=== PATIENT | female | born 1950 | race Caucasian/White ===

== ENCOUNTER → 2023-06-14 06:26 | Day surgery (SDC) | payer OTHER, SELFPAY | LOC: GI 06:26 | PROVIDERS: ATTENDING PHYSICIAN Internal Medicine Gastroenterology | DX: Z12.11 Encounter for screening for malignant neoplasm of colon (principal); Z86.010 Personal history of colon polyps; K64.8 Other hemorrhoids; K57.30 Diverticulosis of large intestine without perforation or abscess without bleeding; K56.699 Other intestinal obstruction unspecified as to partial versus complete obstruction | CPT/HCPCS: G0105 ==

== ENCOUNTER → 2023-08-31 11:46 | Outpatient (REF) | payer OTHER, SELFPAY | LOC: WDC 11:46 | PROVIDERS: ATTENDING PHYSICIAN Physician Assistant Medical | DX: Z12.31 Encounter for screening mammogram for malignant neoplasm of breast (principal) | CPT/HCPCS: 77063; 77067 ==

== ENCOUNTER → 2023-09-06 12:31 | Outpatient (REF) | payer OTHER, SELFPAY | LOC: RAD 12:31 | PROVIDERS: ATTENDING PHYSICIAN Physician Assistant Medical | DX: M81.0 Age-related osteoporosis without current pathological fracture (principal) | CPT/HCPCS: 77080 ==

== ENCOUNTER → 2023-11-26 14:06 | Outpatient (REF) | payer OTHER, SELFPAY | LOC: RAD 14:06 | PROVIDERS: ATTENDING PHYSICIAN Physician Assistant Medical | DX: M79.605 Pain in left leg (principal) | CPT/HCPCS: 93971 ==

== ENCOUNTER 2024-05-26 07:52 | Emergency (ER) | payer OTHER, SELFPAY ==
[2024-05-26 07:55] VITALS: BP 166/90
--- NOTE | 2024-05-26 09:15 | ED.GENMED ---
History of Present Illness
General
Chief Complaint: Fall
Time Seen by Provider: 05/26/24 08:04
History of Present Illness
History of Present Illness:
74-year-old female presents after a fall, tripped and fell outside her home and struck her head on concrete. Point of injury was the left posterior parietal scalp. No LOC. Reports mild dizziness after the injury however now has no complaints.
Does not take any blood thinners. No neck pain or back pain.
Review of Systems
Review of Systems
Allergies reviewed?: Yes
All Other Systems: ROS reviewed and negative except as documented in HPI and ROS
Phy Exam
Physical Exam
Physical Exam:
GEN: Well appearing, NAD, WDWN
HEENT: Oral mucosa moist, no scleral icterus, no nasal congestion, no midline cervical spine tenderness.
Cardiac: Regular rate
Lung: No respiratory distress, no tachypnea
MSK: No gross deformity or injuries
Skin: Good color, no pallor or jaundice, no rashes
Neuro: AO x3; CN II-XII grossly intact. BUE strength 5/5 in all duffy, sensation intact and symmetric. BLE strength 5/5 in all duffy, sensation intact and symmetric
Psych: Calm, cooperative
Course
Orders/Labs/Results
Orders:
Orders
05/26/24 08:03
CT Head W/o Iv Contrast Urgent
Comment:
Reason For Exam: fall head injury
Vital Signs
Initial and Last Documented VS:
Initial Vital Signs
Temp Pulse Resp BP Pulse Ox
98 F 88 20 166/90 98
05/26/24 07:55 05/26/24 07:55 05/26/24 07:55 05/26/24 07:55 05/26/24 07:55
Last Documented Vital Signs
Temp Pulse Resp BP Pulse Ox
98 F 88 20 166/90 98
05/26/24 07:55 05/26/24 07:55 05/26/24 07:55 05/26/24 07:55 05/26/24 07:55
MDM/Problems Addressed
MDM/Problems Addressed:
Patient with no signs or symptoms of cervical spine injury. CT of the head is reassuring, discharged in stable condition
*Critical Care Note
Total Time (30-74mins, 75-104mins- exclusive of procedures): Not Applicable
ED Attending Note
-
Portions of this chart may have been created with voice recognition software.� Occasional wrong word or��sound alike� substitutions may have occurred due to the inherent limitations of voice recognition software.
Discharge Plan
Departure
Patient Disposition: Home (Routine Discharge)
Date of Disposition: 05/26/24
Time of Disposition: 09:15
Patient with high blood pressure during this ER visit?: No
Discharge Problem:
Closed head injury
Instructions: Head Injury in Adults (DC)
Referrals:
Bethanie Tolbert PA [Family Provider] -
Interventions
Interventions:
*Risk Screen - Suicide Last Done: 05/26/24 07:55
*General Assessment Last Done: 05/26/24 07:55
*Neglect/Abuse Screening Last Done: 05/26/24 07:55
*Nursing Disposition Last Done: 05/26/24 09:26
ED- Neurological Assessment Last Done: 05/26/24 09:18
ED-Skin Assessment Last Done: 05/26/24 09:18
Discharge Date and Time
Discharge Date/Time: 05/26/24 09:26
Print Language: HONDURAN
== END 2024-05-26 09:26 | disposition home or self-care (01) ==
LOC: EMR 07:52
PROVIDERS: EMERGENCY PHYSICIAN Emergency Medicine; FAMILY PHYSICIAN Physician Assistant Medical
DX: S09.90XA Unspecified injury of head, initial encounter (principal); W01.0XXD Fall on same level from slipping, tripping and stumbling without subsequent striking against object, subsequent encounter
CPT/HCPCS: 99284; 70450

== ENCOUNTER → 2024-08-31 13:44 | Outpatient (REF) | payer OTHER, SELFPAY | LOC: WDC 13:44 | PROVIDERS: ATTENDING PHYSICIAN Physician Assistant Medical | DX: Z12.31 Encounter for screening mammogram for malignant neoplasm of breast (principal) | CPT/HCPCS: 77063; 77067 ==

== ENCOUNTER → 2025-02-21 10:40 | Outpatient (REF) | payer OTHER, SELFPAY | LOC: WDC 10:40 | PROVIDERS: ATTENDING PHYSICIAN Physician Assistant Medical | DX: R92.30 Dense breasts, unspecified (principal) | CPT/HCPCS: 76641 ==